=== PATIENT | female | born 1960 | race Caucasian/White ===

== ENCOUNTER 2024-05-17 19:20 | Emergency (ER) | payer OTHER ==
[~2024-05-17] VITALS: Ht 160 cm
[2024-05-17] MEDS ORDERED: LIPITOR40 MG PO (19:55)
[2024-05-17] MEDS ORDERED: APRESOLINE25 MG PO (19:55)
[2024-05-17] MEDS ORDERED: ZESTRIL40 MG PO (19:55)
[2024-05-17] MEDS ORDERED: ZANAFLEX4 M1 PO (19:56)
[2024-05-17] MEDS ORDERED: ZOLOFT100 MG PO (19:56)
[2024-05-17] MEDS ORDERED: LANTUS100 UNIT/1 SC (19:57)
[2024-05-17] MEDS ORDERED: ANIMAL CHEWS1 EACH PO (19:57)
[2024-05-17] MEDS ORDERED: VITAMIN B COMP1 EAC1 PO (19:57)
[2024-05-17] MEDS ORDERED: TURMERIC ROOT5000 GM MC (19:57)
[2024-05-17] MEDS ORDERED: ELDERBERRY350 MG PO (19:57)
[2024-05-17] MEDS ORDERED: FIBER350 GM PO (19:58)
[2024-05-17] MEDS ORDERED: IRON 100 PLUS1 EACH PO (19:58)
[2024-05-17] MEDS ORDERED: ZINC7.5 MG PO (19:58)
[2024-05-17] MEDS ORDERED: GINKGO60 MG PO (19:58)
[2024-05-17] MEDS ORDERED: CO Q-1010 M2 PO (19:58)
[2024-05-17] MEDS ORDERED: GARLIC100 M1 PO (19:58)
[2024-05-17] MEDS ORDERED: ASPIRIN CHEWABL81 MG PO (19:59)
[2024-05-17 20:17] LABS: BILIRUBIN Negative (Negative); BLOOD Negative (Negative); CLARITY Clear (Clear); COLOR Yellow (Yellow); GLUCOSE 3+ (Negative); KETONE Negative (Negative); LEUKO ESTERASE Negative (Negative); NITRITE Negative (Negative); PH 5.5 (4.5-8.0); SPECIFIC GRAVITY >= 1.030 (1.001-1.030); UROBILINOGEN 0.2 E.U./dl (0.0-1.0)
[2024-05-17] MEDS ORDERED: SODIUM CHLORIDE 0.9% 1,000 ML IV ONE (20:25)
[2024-05-17 20:28] LABS: BACTERIA 1+; WBC 21-30 wbc/hpf (0-5)
[2024-05-17 20:42] LABS: BASO # 0.1 10*3/uL (0.0-0.1); BASO % 0.6 % (0.0-1.0); EOS # 0.2 10*3/uL (0.0-0.4); EOS % 2.3 % (1.0-4.0); HEMATOCRIT 42.3 % (37.0-47.0); LYMPH # 2.5 10*3/uL (1.3-4.4); LYMPH % 24.1 % (27.0-41.0); MEAN CELL VOLUME 84.4 fl (81.0-99.0); MEAN CORPUSCULAR HGB 27.1 pg (27.0-31.0); MEAN CORPUSCULAR HGB CONC 32.2 g/dl (33.0-37.0); MEAN PLATELET VOLUME 9.4 fl (9.6-12.3); MONO # 0.6 10*3/uL (0.1-1.0); MONO % 5.9 % (3.0-9.0); NEUT # 6.8 10*3/uL (2.3-7.9); NEUT % 66.8 % (47.0-73.0); PLATELET COUNT AUTOMATED 312 10*3/uL (130-400); RED BLOOD COUNT 5.01 10*6/uL (4.10-5.10); RED CELL DISTRI WIDTH 14.5 % (0-14.5); WHITE BLOOD COUNT 10.2 10*3/uL (4.8-10.8)
[2024-05-17 21:40] LABS: ALKALINE PHOSPHATASE 98 U/L (46-116); BUN 21 mg/dl (9-23); CHLORIDE 97 mmol/L (98-107); POTASSIUM 4.5 mmol/L (3.4-5.1); SGPT/ALT 22 U/L (5-49); TOTAL PROTEIN 7.9 gm/dL (6.0-8.0)
[2024-05-17] MEDS ORDERED: INSULIN REGULAR, HUMAN 1 UNIT/0.01 ML IV ONE (21:45)
[2024-05-17] MEDS ORDERED: INSULIN REGULAR, HUMAN 1 UNIT/0.01 ML ONE (22:21)
[2024-05-17] MEDS ORDERED: CIPRO500 MG PO (23:00)
[2024-05-17] MEDS ORDERED: Ciprofloxacin Hydrochloride 500 MG TAB PO ONE (23:05)
== END 2024-05-17 23:30 | disposition home or self-care (01) ==
LOC: ED 19:20
PROVIDERS: Emergency Medicine; Nurse Practitioner Family
DX: N39.0 Urinary tract infection, site not specified (principal); E11.65 Type 2 diabetes mellitus with hyperglycemia; I10 Essential (primary) hypertension; Z88.7 Allergy status to serum and vaccine; Z88.8 Allergy status to other drugs, medicaments and biological substances

== ENCOUNTER 2025-01-24 17:42 | Inpatient (IN) | payer OTHER, MEDICAID ==
[~2025-01-24] VITALS: Ht 160 cm; Wt 147.0 kg
[~2025-01-24 17:42] MED LIST: ANIMAL CHEWS1 EACH PO; APRESOLINE25 MG PO; ASPIRIN CHEWABL81 MG PO; CIPRO500 MG PO; CO Q-1010 M2 PO; ELDERBERRY350 MG PO; FIBER350 GM PO; GARLIC100 M1 PO; GINKGO60 MG PO; IRON 100 PLUS1 EACH PO; LANTUS100 UNIT/1 SC; LIPITOR40 MG PO; TURMERIC ROOT5000 GM MC; VITAMIN B COMP1 EAC1 PO; ZANAFLEX4 M1 PO; ZESTRIL40 MG PO; ZINC7.5 MG PO; ZOLOFT100 MG PO
[2025-01-24] MEDS ORDERED: methylPREDNISolone sod succ 125 MG VIAL IV ONE (17:45)
[2025-01-24] MEDS ORDERED: Albuterol Sulf/Ipratropium 3 ML VIAL NEB ONE (17:45)
[2025-01-24 17:48] VITALS: BP 127/82
[2025-01-24 18:00] LABS: BASO # 0.1 10*3/uL (0.0-0.1); BASO % 0.7 % (0.0-1.0); EOS # 0.2 10*3/uL (0.0-0.4); EOS % 2.1 % (1.0-4.0); HEMATOCRIT 41.8 % (37.0-47.0); MEAN CELL VOLUME 83.3 fl (81.0-99.0); MEAN CORPUSCULAR HGB 26.1 pg (27.0-31.0); MEAN CORPUSCULAR HGB CONC 31.3 g/dl (33.0-37.0); MEAN PLATELET VOLUME 8.9 fl (9.6-12.3); MONO # 0.5 10*3/uL (0.1-1.0); MONO % 5.4 % (3.0-9.0); NEUT # 6.6 10*3/uL (2.3-7.9); NEUT % 65.8 % (47.0-73.0); PLATELET COUNT AUTOMATED 277 10*3/uL (130-400); RED BLOOD COUNT 5.02 10*6/uL (4.10-5.10); RED CELL DISTRI WIDTH 14.7 % (0-14.5)
[2025-01-24 18:11] LABS: ACT PARTIAL THROMBO TIME 22.3 SECONDS (20.0-32.1)
[2025-01-24 18:23] LABS: ABG BASE EXCESS 0.1 mmol/L (-2.0-3.0); ABG O2 SATURATION 96.6 % (94.0-98.0); ARTERIAL BLOOD GAS PH 7.382 (7.350-7.450); ARTERIAL BLOOD GAS PO2 90.8 mmHg (83.0-108.0)
[2025-01-24 19:09] LABS: ALKALINE PHOSPHATASE 89 U/L (46-116); BUN 18 mg/dl (9-23); CHLORIDE 103 mmol/L (98-107); POTASSIUM 3.6 mmol/L (3.4-5.1); SGPT/ALT 46 U/L (5-49); TOTAL PROTEIN 7.5 gm/dL (6.0-8.0)
[2025-01-24] MEDS ORDERED: FUROSEMIDE 40 MG/4 ML VIAL IV ONE (19:20)
[2025-01-24] MEDS ORDERED: INSULIN REGULAR, HUMAN 1 UNIT/0.01 ML IV ONE (19:20)
[2025-01-24 20:23] VITALS: BP 123/69
[2025-01-24] MEDS ORDERED: BISACODYL 5 MG TAB PO PRN (20:50)
[2025-01-24] MEDS ORDERED: Pantoprazole Sodium 40 MG TAB PO PRN (20:50)
[2025-01-24] MEDS ORDERED: Magnesium Hydroxide 30 ML UDC PO PRN (20:50)
[2025-01-24] MEDS ORDERED: ACETAMINOPHEN 325 MG TAB PO PRN (20:50)
[2025-01-24] MEDS ORDERED: Ondansetron Hydrochloride 4 MG/2 ML VIAL IV PRN (20:50)
[2025-01-24] MEDS ORDERED: ACETAMINOPHEN 650 MG SUPP R PRN (20:50)
[2025-01-24] MEDS ORDERED: BISACODYL 10 MG SUPP R PRN (20:50)
[2025-01-24] MEDS ORDERED: Acetaminophen/Hydrocodone 5 MG/325 MG TABLET PO PRN (20:50)
[2025-01-24] MEDS ORDERED: MORPHINE Sulfate 2 MG/ML SYR IV PRN (20:50)
[2025-01-24] MEDS ORDERED: DEXTROSE 10 % IN WATER 250 ML IV PRN (20:55)
[2025-01-24] MEDS ORDERED: INSULIN LISPRO 1 UNIT/0.01 ML SQ SCH (22:00)
[2025-01-24 22:18] LABS: BILIRUBIN Negative (Negative); BLOOD Negative (Negative); CLARITY Clear (Clear); COLOR Yellow (Yellow); GLUCOSE 3+ (Negative); KETONE Negative (Negative); LEUKO ESTERASE Negative (Negative); NITRITE Negative (Negative); PH 5.5 (4.5-8.0); SPECIFIC GRAVITY 1.025 (1.001-1.030); UROBILINOGEN 0.2 E.U./dl (0.0-1.0)
[2025-01-25 06:18] LABS: BASO % 0.1 % (0.0-1.0); MEAN CELL VOLUME 83.9 fl (81.0-99.0); MEAN PLATELET VOLUME 9.3 fl (9.6-12.3); MONO # 0.2 10*3/uL (0.1-1.0); MONO % 1.6 % (3.0-9.0); NEUT % 89.7 % (47.0-73.0); PLATELET COUNT AUTOMATED 263 10*3/uL (130-400); RED BLOOD COUNT 4.65 10*6/uL (4.10-5.10); RED CELL DISTRI WIDTH 14.7 % (0-14.5)
[2025-01-25 06:37] VITALS: BP 111/59
[2025-01-25 06:47] LABS: ALKALINE PHOSPHATASE 75 U/L (46-116); BUN 19 mg/dl (9-23); CHLORIDE 101 mmol/L (98-107); CHOLESTEROL 95 mg/dL (<200); FREE T4 1.51 ng/dl (0.89-1.76); LDL CHOLESTEROL 31 mg/dL (9-159); POTASSIUM 4.2 mmol/L (3.4-5.1); SGPT/ALT 38 U/L (5-49); TOTAL PROTEIN 6.8 gm/dL (6.0-8.0); TRIGLYCERIDES 69 mg/dl (<150)
[2025-01-25 07:26] LABS: VITAMIN D, 25-HYDROXY 59.7 ng/mL (30-100)
[2025-01-25] MEDS ORDERED: LISINOPRIL 20 MG TAB ONE (08:57)
[2025-01-25 09:33] VITALS: BP 132/80
[2025-01-25] MEDS ORDERED: Enoxaparin Sodium 40 MG/0.4 ML SYR SC SCH (10:00)
[2025-01-25] MEDS ORDERED: hydrALAZINE hydrochloride 25 MG TAB PO SCH (10:00)
[2025-01-25] MEDS ORDERED: Sertraline Hydrochloride 50 MG TAB PO SCH (10:00)
[2025-01-25] MEDS ORDERED: LISINOPRIL 40 MG TAB PO SCH (10:00)
[2025-01-25] MEDS ORDERED: FUROSEMIDE 40 MG/4 ML VIAL IV SCH (10:00)
[2025-01-25] MEDS ORDERED: Insulin Glargine, Recombinan 1 UNIT/0.01 ML SC SCH ×2 (10:00→22:00)
[2025-01-25] MEDS ORDERED: ASPIRIN, CHEWABLE 81 MG TAB PO SCH (10:00)
[2025-01-25] MEDS ORDERED: ATORVASTATIN CALCIUM 40 MG TABLET PO SCH (10:00)
[2025-01-25 13:39] VITALS: BP 123/72
[2025-01-25 14:40] VITALS: BP 117/61
[2025-01-25] MEDS ORDERED: LANTUS SOL100 UNIT/1 SC (16:26)
[2025-01-25] MEDS ORDERED: JANUVIA50 MG PO (16:28)
[2025-01-25 20:00] VITALS: BP 99/85
[2025-01-26] VITALS: BP 117/60
[2025-01-26 07:02] LABS: BUN 23 mg/dl (9-23); CHLORIDE 101 mmol/L (98-107); POTASSIUM 3.7 mmol/L (3.4-5.1)
[2025-01-26 08:00] VITALS: BP 120/83
[2025-01-26 12:00] VITALS: BP 109/56
[2025-01-26] MEDS ORDERED: PERFLUTREN PROTEIN-A MICROSPHR 3 ML VIAL IV ONE (15:54)
[2025-01-26 16:00] VITALS: BP 116/67
[2025-01-26 21:00] VITALS: BP 128/83
[2025-01-27] VITALS: BP 124/65
[2025-01-27 05:58] LABS: BUN 22 mg/dl (9-23); CHLORIDE 99 mmol/L (98-107); POTASSIUM 4.3 mmol/L (3.4-5.1)
[2025-01-27 06:07] LABS: BASO # 0.1 10*3/uL (0.0-0.1); BASO % 0.6 % (0.0-1.0); EOS # 0.3 10*3/uL (0.0-0.4); HEMATOCRIT 42.3 % (37.0-47.0); MEAN CELL VOLUME 84.9 fl (81.0-99.0); MEAN CORPUSCULAR HGB 25.7 pg (27.0-31.0); MEAN CORPUSCULAR HGB CONC 30.3 g/dl (33.0-37.0); MONO # 0.9 10*3/uL (0.1-1.0); MONO % 8.6 % (3.0-9.0); NEUT # 6.7 10*3/uL (2.3-7.9); NEUT % 62.7 % (47.0-73.0); PLATELET COUNT AUTOMATED 295 10*3/uL (130-400); RED BLOOD COUNT 4.98 10*6/uL (4.10-5.10); WHITE BLOOD COUNT 10.7 10*3/uL (4.8-10.8)
[2025-01-27 08:00] VITALS: BP 115/52
[2025-01-27 12:00] VITALS: BP 117/69
[2025-01-27 16:00] VITALS: BP 112/64
[2025-01-27 20:00] VITALS: BP 123/66
[2025-01-28] VITALS: BP 114/63
[2025-01-28 05:46] LABS: BUN 19 mg/dl (9-23); CHLORIDE 98 mmol/L (98-107); POTASSIUM 4.2 mmol/L (3.4-5.1)
[2025-01-28 08:00] VITALS: BP 108/63
[2025-01-28] MEDS ORDERED: METOPROLOL SUCCINATE XR 25 MG TAB PO SCH (09:50)
[2025-01-28] MEDS ORDERED: ADMELOG100 UNIT/1 SQ (11:20)
[2025-01-28] MEDS ORDERED: FUROSEMIDE40 MG PO (11:20)
[2025-01-28] MEDS ORDERED: METOPROLOL SUCC25 M2 PO (11:20)
[2025-01-28 12:09] VITALS: BP 101/66
[2025-01-28] MEDS ORDERED: FUROSEMIDE 40 MG TAB PO SCH (18:00)
== END 2025-01-28 14:27 | disposition home or self-care (01) | DRG 291 ==
LOC: ED 17:42 → EDHOLD 19:21 → 5E 19:21 → EDHOLD 22:00 → 5E 01-25 14:30
PROVIDERS: Internal Medicine; Student in an Organized Health Care Education/Training Program; ADMIT Internal Medicine; ATTEND Internal Medicine
PROC: 5A09357 Assistance with Respiratory Ventilation, Less than 24 Consecutive Hours, Continuous Positive Airway Pressure (ICD-10-PCS; principal; 2025-01-24)
DX: I11.0 Hypertensive heart disease with heart failure (principal); I50.23 Acute on chronic systolic (congestive) heart failure; E11.65 Type 2 diabetes mellitus with hyperglycemia; R74.01 Elevation of levels of liver transaminase levels; G47.33 Obstructive sleep apnea (adult) (pediatric); Z88.8 Allergy status to other drugs, medicaments and biological substances; Z91.09 Other allergy status, other than to drugs and biological substances; Z79.899 Other long term (current) drug therapy; Z79.01 Long term (current) use of anticoagulants; Z79.2 Long term (current) use of antibiotics; Z87.442 Personal history of urinary calculi; Z83.3 Family history of diabetes mellitus; Z81.8 Family history of other mental and behavioral disorders; Z80.0 Family history of malignant neoplasm of digestive organs

== ENCOUNTER → 2025-02-17 | Outpatient (CLI) | payer MEDICARE, MEDICAID ==
[~2025-02-17] MED LIST changes: +ADMELOG100 UNIT/1 SQ; -CO Q-1010 M2 PO; +CO Q-1050 M1 PO; +FUROSEMIDE40 MG PO; -GARLIC100 M1 PO; +GARLIC1000 M1 PO; +JANUVIA50 MG PO; +LANTUS SOL100 UNIT/1 SC; +METOPROLOL SUCC25 M2 PO; +Regadenoson 0.4 MG/5 ML SYR IV ONE; +TIZANIDINE HCL4 M1 PO; +ZINC50 M4 PO
== END | disposition home or self-care (01) ==
LOC: CARD 01:49
PROVIDERS: ATTEND Internal Medicine Cardiovascular Disease
DX: I51.7 Cardiomegaly (principal); I50.23 Acute on chronic systolic (congestive) heart failure; I51.9 Heart disease, unspecified; G47.33 Obstructive sleep apnea (adult) (pediatric); E11.9 Type 2 diabetes mellitus without complications; I10 Essential (primary) hypertension; Z79.4 Long term (current) use of insulin